=== PATIENT | male | born 1995 | race Caucasian/White ===

== ENCOUNTER 2021-04-22 11:30 | Day surgery (SDC) | payer OTHER ==
[~2021-04-22] VITALS: Ht 142.2 cm; Wt 36.4 kg
[2021-04-22] MEDS ORDERED: PROPOFOL 1% 20 ML VIAL IVP ONE (11:31)
[2021-04-22] MEDS ORDERED: LIDOCAINE/PF 2% 5 ML SYRINGE IVP ONE (11:31)
[2021-04-22] MEDS ORDERED: SODIUM CHLORIDE 0.9% 1,000 ML IV ONE (12:00)
[2021-04-22 12:05] LABS: COVID AG,FIA SOURCE NASOPHARYNGEAL
[2021-04-22] MEDS ORDERED: SODIUM CHLORIDE 0.9% 1,000 ML ONE (12:16)
[2021-04-22] MEDS ORDERED: ONDANSETRON HCL 4 MG/2 ML VIAL ONE (15:06)
== END 2021-04-22 15:35 | disposition home or self-care (01) ==
LOC: SURGERY 11:30
PROVIDERS: ATTEND Internal Medicine Gastroenterology
DX: K59.00 Constipation, unspecified (principal); K29.70 Gastritis, unspecified, without bleeding; K44.9 Diaphragmatic hernia without obstruction or gangrene; Z98.890 Other specified postprocedural states; Z79.899 Other long term (current) drug therapy; Z88.8 Allergy status to other drugs, medicaments and biological substances; G80.9 Cerebral palsy, unspecified
CPT/HCPCS: 43239; 45378; 87426; C1769; C9803; J2405; J2704; J3490; J7030; 88305; 88312; 88313